=== PATIENT | female | born 2000 | race American Indian/Alaskan Native ===

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

== ENCOUNTER 2020-08-24 22:17 | Emergency (ER) | payer MEDICAID, OTHER ==
[2020-08-24] MEDS ORDERED: ONDANSETRON 4 MG/2 ML INJ IV ONE (22:36)
[2020-08-24] MEDS ORDERED: FAMOTIDINE 20 MG/2 ML INJ IV ONE (22:36)
[2020-08-24] MEDS ORDERED: MORPHINE 4 MG/1 ML INJ IV ONE (22:36)
[2020-08-24] MEDS ORDERED: SODIUM CHLORIDE 0.9% 1000 ML 1,000 ML IV ONE (22:36)
--- NOTE | 2020-08-24 22:39 | Event Note ---
ED Screening Note Date of service: 08/24/20 Time: 22:38 ED Screening Note: Patient is a nulliparous [age]-year-old -Wallisian female with no past medical history presents to the ED with complaint of acute onset persistent intractable nausea and vomiting with periumbilical abdominal pain for the last 1 week. Patient states that she has not been able to keep anything down because of intractable nausea and vomiting and abdominal pain. Patient states that no one else at home has had similar symptoms. Patient denies diarrhea, constipation, chest pain, shortness of breath, fever, chills, dizziness, syncope, headache, back pain, dysuria, urinary frequency and urgency, vaginal bleeding, vaginal discharge, cough, nasal and sinus congestion, headache or change in vision. This initial assessment/diagnostic orders/clinical plan/treatment(s) is/are subject to change based on patients health status, clinical progression and re- assessment by fellow clinical providers in the ED. Further treatment and workup at subsequent clinical providers discretion. Patient/guardian urged not to elope from the ED as their condition may be serious if not clinically assessed and managed. Initial orders include: CBC, CMP, lipase, UA, hCG serum, abdomen pelvis CT scan with contrast
[2020-08-24 22:53] LABS: Basophils % (Auto) 0.3 % (0.0-1.8); Hematocrit 37.4 % (30.3-42.9); Hemoglobin 12.6 gm/dl (10.1-14.3); Lymphocytes # (Auto) 0.8 K/mm3 (1.2-5.4); Lymphocytes % (Auto) 10.3 % (13.4-35.0); Mean Corpuscular HGB Conc 34 % (30-34); Mean Corpuscular Volume 88 fl (79-97); Monocytes # (Auto) 0.5 K/mm3 (0.0-0.8); Monocytes % (Auto) 7.3 % (0.0-7.3); Platelet Count 227 K/mm3 (140-440); Red Blood Count 4.27 M/mm3 (3.65-5.03); Red Cell Distribution Width 13.1 % (13.2-15.2)
[2020-08-24 23:15] LABS: Alanine Aminotransferase 18 units/L (7-56); Albumin 4.4 g/dL (3.9-5); Blood Urea Nitrogen 13 mg/dL (7-17); Calcium 9.5 mg/dL (8.4-10.2); Hemolysis Index 1
--- NOTE | 2020-08-24 23:49 | Emergency Department Report ---
ED Abdominal Pain HPI - General Chief Complaint: Abdominal Pain Stated Complaint: VOMITING;DIARRHEA; NO APPETITE Time Seen by Provider: 08/24/20 23:34 Source: patient Mode of arrival: Ambulatory Limitations: No Limitations - History of Present Illness Initial Comments: Chief complaint: Stomach pain vomiting Patient is a nulliparous [age]-year-old -[place] African female with no past medical history presents to the ED with complaint of acute onset persistent intractable nausea and vomiting with central periumbilical abdominal pain for the last 1 week. Patient states that she has not been able to keep anything down because of intractable nausea and vomiting and abdominal pain. Patient states that no one else at home has had similar symptoms. Patient denies diarrhea, constipation, chest pain, shortness of breath, fever, chills, dizziness, syncope, headache, back pain, dysuria, urinary frequency and urgency, vaginal bleeding, vaginal discharge, cough, nasal and sinus congestion, headache or change in vision Last menstrual period May. Patient does not use oral contraceptives. Patient has had unprotected intercourse. She denies vaginal discharge or vaginal bleeding. MD Complaint: abdominal pain -: Gradual, week(s) (1 week) Location: periumbilical Radiation: none Severity: moderate Severity scale (0 -10): 7 Quality: dull Consistency: intermittent, now resolved Improves With: nothing Worsens With: nothing Associated Symptoms: nausea, vomiting. denies: diarrhea - Related Data Previous Rx's Medication Instructions Recorded Last Taken Type Ibuprofen [Motrin 800 MG tab] 800 mg PO Q8HR PRN #20 tablet 05/09/19 Unknown Rx Ondansetron [Zofran Odt] 4 mg PO Q8HR PRN #20 tab.rapdis 08/25/20 Unknown Rx Allergies Allergy/AdvReac Type Severity Reaction Status Date / Time Penicillins Allergy Hives Verified 08/24/20 23:10 ED Review of Systems ROS: Stated complaint: VOMITING;DIARRHEA; NO APPETITE Other details as noted in HPI Comment: All other systems reviewed and negative Constitutional: denies: fever, malaise Respiratory: denies: cough, shortness of breath ED Past Medical Hx - Past Medical History Previous Medical History?: No - Surgical History Past Surgical History?: No - Social History Smoking Status: Never Smoker Substance Use Type: Marijuana - Medications Home Medications: Home Medications Medication Instructions Recorded Confirmed Last Taken Type Ibuprofen [Motrin 800 MG tab] 800 mg PO Q8HR PRN #20 tablet 05/09/19 Unknown Rx Ondansetron [Zofran Odt] 4 mg PO Q8HR PRN #20 tab.rapdis 08/25/20 Unknown Rx ED Physical Exam - General Limitations: No Limitations General appearance: alert, in no apparent distress - Head Head exam: Present: atraumatic, normocephalic - Eye Eye exam: Present: normal appearance - ENT ENT exam: Present: mucous membranes moist - Neck Neck exam: Present: normal inspection, full ROM - Respiratory Respiratory exam: Present: normal lung sounds bilaterally. Absent: respiratory distress, wheezes, rales, rhonchi - Cardiovascular Cardiovascular Exam: Present: regular rate, normal rhythm, normal heart sounds. Absent: systolic murmur, diastolic murmur, rubs, gallop - GI/Abdominal GI/Abdominal exam: Present: soft, normal bowel sounds. Absent: distended, tenderness, guarding, rebound - Extremities Exam Extremities exam: Present: normal inspection - Back Exam Back exam: Present: normal inspection - Neurological Exam Neurological exam: Present: alert, oriented X3 - Psychiatric Psychiatric exam: Present: normal affect, normal mood - Skin Skin exam: Present: warm, dry, intact, normal color. Absent: rash ED Course Vital Signs 08/24/20 22:32 Temperature 98.7 F Pulse Rate 57 L Respiratory 17 Rate Blood Pressure 133/84 O2 Sat by Pulse 100 Oximetry ED Medical Decision Making - Lab Data Result diagrams: 08/24/20 22:41 08/24/20 22:41 Laboratory Results - last 24 hr 08/24/20 08/24/20 08/24/20 22:41 22:41 22:41 WBC 7.5 RBC 4.27 Hgb 12.6 Hct 37.4 MCV 88 MCH 29 MCHC 34 RDW 13.1 L Plt Count 227 Lymph % (Auto) 10.3 L [place] % (Auto) 7.3 Eos % (Auto) 0.0 Baso % (Auto) 0.3 Lymph # (Auto) 0.8 L [place] # (Auto) 0.5 Eos # (Auto) 0.0 Baso # (Auto) 0.0 Seg Neutrophils % 82.1 H Seg Neutrophils # 6.2 Albumin/Globulin Ratio 1.4 HCG, Qual Positive - Radiology Data Radiology results: report reviewed ULTRASOUND OBSTETRIC INDICATION / CLINICAL INFORMATION: abdominal pain . TECHNIQUE: Transabdominal and Transvaginal. COMPARISON: None available. FINDINGS: GESTATIONAL SAC: Well-defined oval shape and intrauterine in location. YOLK SAC: No significant abnormality. EMBRYO/FETUS: No significant abnormality. - [place]-Rump Length = 0.59 cm = 6.3 weeks.days - Heart Rate, beats per minute (if present) = 114 ADNEXA: No significant abnormality. FREE FLUID: None. ADDITIONAL FINDINGS: None. IMPRESSION: 1. Single, living intrauterine with estimated sonographic age of 6.3 weeks.days. - Medical Decision Making Abdominal pain : No tenderness fever or leukocytosis to suggest appendicitis or cholecystitis. No indication of obstruction clinically. No significant pain or discharge to indicate PID. Ectopic ruled out with ultrasound. I suspect abdominal pain due to unknown and hyperemesis gravidarum. Patient given IV fluid therapy famotidine Zofran in emergency department. Work-up revealed mild hypokalemia and hypochloremia indicative of dehydration. Patient received IV fluid therapy in emergency department. Beta hCG greater than 23,000. Critical care attestation.: If time is entered above; I have spent that time in minutes in the direct care of this critically ill patient, excluding procedure time. ED Disposition Clinical Impression: Abdominal pain affecting , First trimester , Dehydration, Hyperemesis gravidarum Disposition: - TO HOME OR SELFCARE Is pt being admited?: No Does the pt Need Aspirin: No Condition: Stable Instructions: Abdominal Pain (ED), Abdominal Pain During , E asy-to-Read, Morning Sickness Prescriptions: Ondansetron [Zofran Odt] 4 mg PO Q8HR PRN #20 tab.rapdis PRN Reason: nausea/vomiting Referrals: CHRISTINE TUCKER MD [Staff Physician] - 3-5 Days
[2020-08-24 23:53] LABS: BUN/Creatinine Ratio 19
--- NOTE | 2020-08-25 01:22 | Ultrasound Report ---
ULTRASOUND OBSTETRIC INDICATION / CLINICAL INFORMATION: abdominal pain . TECHNIQUE: Transabdominal and Transvaginal. COMPARISON: None available. FINDINGS: GESTATIONAL SAC: Well-defined oval shape and intrauterine in location. YOLK SAC: No significant abnormality. EMBRYO/FETUS: No significant abnormality. - [place]-Rump Length = 0.59 cm = 6.3 weeks.days - Heart Rate, beats per minute (if present) = 114 ADNEXA: No significant abnormality. FREE FLUID: None. ADDITIONAL FINDINGS: None. IMPRESSION: 1. Single, living intrauterine with estimated sonographic age of 6.3 weeks.days. Signer Name: Mookie Ng MD Signed: 08/25/2020 1:18 AM Workstation Name: [id number]
--- NOTE | 2020-08-25 01:22 | Ultrasound Report ---
ULTRASOUND OBSTETRIC INDICATION / CLINICAL INFORMATION: abdominal pain . TECHNIQUE: Transabdominal and Transvaginal. COMPARISON: None available. FINDINGS: GESTATIONAL SAC: Well-defined oval shape and intrauterine in location. YOLK SAC: No significant abnormality. EMBRYO/FETUS: No significant abnormality. - [place]-Rump Length = 0.59 cm = 6.3 weeks.days - Heart Rate, beats per minute (if present) = 114 ADNEXA: No significant abnormality. FREE FLUID: None. ADDITIONAL FINDINGS: None. IMPRESSION: 1. Single, living intrauterine with estimated sonographic age of 6.3 weeks.days. Signer Name: Mookie Ng MD Signed: 08/25/2020 1:18 AM Workstation Name: [id number]
[2020-08-25 02:07] VITALS: BP 128/64
== END 2020-08-25 02:14 | disposition home or self-care (01) ==
LOC: ED 22:17
DX: O21.0 Mild hyperemesis gravidarum (principal); O26.891 Other specified pregnancy related conditions, first trimester; E86.0 Dehydration; R10.33 Periumbilical pain; F12.10 Cannabis abuse, uncomplicated; Z3A.01 Less than 8 weeks gestation of pregnancy; Z79.1 Long term (current) use of non-steroidal anti-inflammatories (NSAID); Z79.899 Other long term (current) drug therapy; Z88.0 Allergy status to penicillin
CPT/HCPCS: 36415; 76801; 76817; 80053; 83690; 84702; 84703; 85025; 96361; 96374; 96375; 99284; J2405; J7030; 76802

== ENCOUNTER 2020-09-23 08:04 | Emergency (ER) | payer SELFPAY ==
[2020-09-23 08:18] VITALS: BP 134/85
[2020-09-23] MEDS ORDERED: ACETAMINOPHEN 325 MG TAB PO ONE (09:01)
--- NOTE | 2020-09-23 09:03 | Emergency Department Report ---
ED Abdominal Pain HPI - General Chief Complaint: Abdominal Pain Stated Complaint: PELVIC PAIN Time Seen by Provider: 09/23/20 08:55 Source: patient Mode of arrival: Ambulatory Limitations: No Limitations - History of Present Illness Initial Comments: 19-year-old female presents to the emergency room with complaint of right pelvic pain painful urination, nausea and decreased urination x1 week. Patient states she is 9 weeks . She has not been seen by CAT DOG OR OTHER PET GROOMER. she denies vaginal bleeding she denies abdominal cramping she denies fever, no fever no cough no chest pain no shortness of breath. She has no past medical history and this is her first . Patient appears to be in no acute distress. -: week(s) (1) Location: suprapubic Radiation: none Migration to: no migration Severity scale (0 -10): 8 Quality: aching Consistency: constant Improves With: nothing Worsens With: nothing Associated Symptoms: nausea, dysuria. denies: vomiting, diarrhea, fever, constipation, melena, hematuria, anorexia, syncope - Related Data Previous Rx's Medication Instructions Recorded Last Taken Type Ibuprofen [Motrin 800 MG tab] 800 mg PO Q8HR PRN #20 tablet 05/09/19 Unknown Rx Ondansetron [Zofran Odt] 4 mg PO Q8HR PRN #20 tab.rapdis 08/25/20 Unknown Rx Allergies Allergy/AdvReac Type Severity Reaction Status Date / Time Penicillins Allergy Hives Verified 08/24/20 23:10 ED Review of Systems ROS: Stated complaint: PELVIC PAIN Other details as noted in HPI Comment: All other systems reviewed and negative Constitutional: no symptoms reported. denies: chills, fever, malaise ENT: denies: ear pain, throat pain, dental pain Respiratory: no symptoms reported Cardiovascular: denies: chest pain, palpitations, dyspnea on exertion Endocrine: no symptoms reported Gastrointestinal: nausea Genitourinary: dysuria Musculoskeletal: denies: back pain Skin: denies: rash, lesions Neurological: denies: headache Psychiatric: as per HPI Hematological/Lymphatic: as per HPI ED Past Medical Hx - Past Medical History Previous Medical History?: No - Surgical History Past Surgical History?: No - Social History Smoking Status: Current Every Day Smoker Substance Use Type: Marijuana - Medications Home Medications: Home Medications Medication Instructions Recorded Confirmed Last Taken Type Ibuprofen [Motrin 800 MG tab] 800 mg PO Q8HR PRN #20 tablet 05/09/19 Unknown Rx Ondansetron [Zofran Odt] 4 mg PO Q8HR PRN #20 tab.rapdis 08/25/20 Unknown Rx ED Physical Exam - General Limitations: No Limitations General appearance: alert, in no apparent distress - Head Head exam: Present: atraumatic - Eye Eye exam: Present: normal appearance - ENT ENT exam: Present: normal exam - Neck Neck exam: Present: normal inspection - Respiratory Respiratory exam: Present: normal lung sounds bilaterally - Cardiovascular Cardiovascular Exam: Present: regular rate, normal heart sounds - GI/Abdominal GI/Abdominal exam: Present: soft, normal bowel sounds. Absent: distended, tend erness - Extremities Exam Extremities exam: Present: normal inspection - Back Exam Back exam: Present: normal inspection - Neurological Exam Neurological exam: Present: alert, oriented X3 - Psychiatric Psychiatric exam: Present: normal affect - Skin Skin exam: Present: warm, dry, intact, normal color ED Course Vital Signs 09/23/20 08:09 Temperature 98.2 F Pulse Rate 80 Respiratory 18 Rate Blood Pressure 134/85 O2 Sat by Pulse 100 Oximetry - Reevaluation(s) Reevaluation #1: 09/23/20 11:25 Patient in no distress resting comfortably still waiting for urine analysis ED Medical Decision Making - Lab Data Result diagrams: 09/23/20 09:33 09/23/20 09:33 - Radiology Data Radiology results: report reviewed ULTRASOUND OBSTETRIC INDICATION / CLINICAL INFORMATION: abdominal pain. Clinical Gestational Age (GA): 10.5 weeks.days TECHNIQUE: Transabdominal. COMPARISON: 08/24/2020. FINDINGS: GESTATIONAL SAC: Well-defined oval shape and intrauterine in location. There is a tiny crescentic hypoechoic region adjacent to the gestational sac. YOLK SAC: No significant abnormality. EMBRYO/FETUS: No significant abnormality. - [place]-Rump Length = 33.0 cm = 10.1 weeks.days - Heart Rate, beats per minute (if present) = 173 UTERUS: The uterus measures 10.1 x 7.6 x 8.7 cm and is normal in echogenicity. ADNEXA: The right ovary measures 3.8 cm and contains a 2.6 cm anechoic cyst. The left ovary measures 2.6 cm and is normal in echogenicity. There is normal Doppler flow to both ovaries. FREE FLUID: None. ADDITIONAL FINDINGS: None. IMPRESSION: 1. Single, living intrauterine with estimated sonographic age of 10.0 weeks.days. 2. Tiny subchorionic hematoma. 3. 2.6 cm simple right ovarian cyst. - Medical Decision Making 19-year-old female that is approximately 10 weeks presents with pain to the right pelvic region upon evaluation she had normal blood work urinalysis shows no signs of infection. Pelvic ultrasound reveals live single intrauterine heart tones 173, right simple ovarian cyst. Findings discussed with patient the plan is for her to follow-up with CAT DOG OR OTHER PET GROOMER as soon as possible she can take Tylenol for pain as needed. Patient in no acute distress stable for discharge Critical care attestation.: If time is entered above; I have spent that time in minutes in the direct care of this critically ill patient, excluding procedure time. ED Disposition Clinical Impression: Intrauterine , Right ovarian cyst Disposition: TO HOME OR SELFCARE Is pt being admited?: No Does the pt Need Aspirin: No Condition: Stable Instructions: Abdominal Pain (ED), First Trimester of , [id number], How a Baby Grows During , Ovarian Cyst Additional Instructions: At home rest drink plenty fluids take at least 6 to 8 to 10 glasses of water per day. Okay for you to take Tylenol 1 to 2 tablets every 4-6 hours as needed for pain. Please follow-up with CAT DOG OR OTHER PET GROOMER as soon as possible.. Your ultrasound today reveals 10 weeks you also have a right ovarian cyst please follow-up with CAT DOG OR OTHER PET GROOMER. Return to the emergency room immediately for any abdominal pain or vaginal bleeding Referrals: PRIMARY CARLOS, [Primary Care Provider] - 3-5 Days KYE SYED MD [Staff Physician] - 3-5 Days DARWIN SAHA NP [Advanced Practice Nurse] - 3-5 Days Time of Disposition: 12:49
--- NOTE | 2020-09-23 09:47 | Ultrasound Report ---
ULTRASOUND OBSTETRIC INDICATION / CLINICAL INFORMATION: abdominal pain. Clinical Gestational Age (GA): 10.5 weeks.days TECHNIQUE: Transabdominal. COMPARISON: 08/24/2020. FINDINGS: GESTATIONAL SAC: Well-defined oval shape and intrauterine in location. There is a tiny crescentic hyp oechoic region adjacent to the gestational sac. YOLK SAC: No significant abnormality. EMBRYO/FETUS: No significant abnormality. - [place]-Rump Length = 33.0 cm = 10.1 weeks.days - Heart Rate, beats per minute (if present) = 173 UTERUS: The uterus measures 10.1 x 7.6 x 8.7 cm and is normal in echogenicity. ADNEXA: The right ovary measures 3.8 cm and contains a 2.6 cm anechoic cyst. The left ovary measures 2.6 cm and is normal in echogenicity. There is normal Doppler flow to both ovaries. FREE FLUID: None. ADDITIONAL FINDINGS: None. IMPRESSION: 1. Single, living intrauterine with estimated sonographic age of 10.0 weeks.days. 2. Tiny subchorionic hematoma. 3. 2.6 cm simple right ovarian cyst. Signer Name: Tushar Perry MD Signed: 09/23/2020 9:43 AM Workstation Name: [email or web address]
[2020-09-23 10:18] LABS: Hematocrit 32.6 % (30.3-42.9); Hemoglobin 10.7 gm/dl (10.1-14.3); Mean Corpuscular HGB Conc 33 % (30-34); Mean Corpuscular Volume 89 fl (79-97); Platelet Count 196 K/mm3 (140-440); Red Blood Count 3.65 M/mm3 (3.65-5.03); Red Cell Distribution Width 13.9 % (13.2-15.2)
[2020-09-23 10:29] LABS: Blood Urea Nitrogen 6 mg/dL (7-17); Calcium 8.6 mg/dL (8.4-10.2); Hemolysis Index 19
[2020-09-23 10:33] LABS: BUN/Creatinine Ratio 12
[2020-09-23 12:33] LABS: Bilirubin,Urine NEG (Negative); Blood,Urine NEG (Negative); Color,Urine Yellow (Yellow); Mucus,Urine 2+ /HPF; Protein,Urine <15 mg/dL mg/dL (Negative); Urobilinogen,Urine < 2.0 mg/dL (<2.0)
== END 2020-09-23 12:57 | disposition home or self-care (01) ==
LOC: ED 08:04
DX: O99.331 Smoking (tobacco) complicating pregnancy, first trimester (principal); O26.891 Other specified pregnancy related conditions, first trimester; N83.201 Unspecified ovarian cyst, right side; Z88.0 Allergy status to penicillin; Z79.899 Other long term (current) drug therapy; Z3A.01 Less than 8 weeks gestation of pregnancy
CPT/HCPCS: 36415; 76801; 80048; 81001; 84702; 85027

== ENCOUNTER 2020-10-31 03:41 | Emergency (ER) | payer SELFPAY ==
[2020-10-31] MEDS ORDERED: diphenhydrAMINE 25 MG CAP PO ONE (04:42)
[2020-10-31] MEDS ORDERED: ACETAMINOPHEN 500 MG TAB PO ONE (04:42)
[2020-10-31] MEDS ORDERED: predniSONE 20 MG TAB PO ONE (04:44)
[2020-10-31 06:05] VITALS: BP 136/69
[2020-10-31 06:20] LABS: Bilirubin,Urine NEG (Negative); Blood,Urine NEG (Negative); Color,Urine Yellow (Yellow); Mucus,Urine 3+ /HPF; Protein,Urine <15 mg/dL mg/dL (Negative)
--- NOTE | 2020-10-31 07:38 | Emergency Department Report ---
ED Headache HPI - General Chief Complaint: Headache Stated Complaint: /MIGRAINE/PRESSURE IN NECK/BACK Time Seen by Provider: 10/31/20 07:35 Source: patient - History of Present Illness Initial Comments: Patient is a 19-year-old -Hungarian female that I received at shift change. Labs noted as ordered by overnight staff. Patient endorses bilateral ear pain resulting in a headache. She has a history of migraines. Patient is . Patient has taken nothing prior to arrival in the emergency room. On exam patient is alert and oriented x4 ambulatory, [id number] and nontoxic on exam. Quality: mild Head Injury Location: frontal Recent Head Trauma: no recent headache/trauma Modifying Factors: worse with: cold therapy, exposure to light, immobilization, medication, movement, rest, other Associated Symptoms: denies: denies symptoms, confusion, fatigue, facial pain, fever/chills, flushing, loss of consciousness, nausea/vomiting, nasal congestion, nasal drainage, numbness in legs/feet, rash, seizures, sinus infection, stiff neck, vision changes, weakness, other Allergies/Adverse Reactions: Allergies Penicillins Allergy (Verified 08/24/20 23:10) Hives Home Medications: Ambulatory Orders Azithromycin [Zithromax] 250 mg PO DAILY #6 tablet 10/31/20 ED Review of Systems ROS: Stated complaint: /MIGRAINE/PRESSURE IN NECK/BACK Other details as noted in HPI Comment: All other systems reviewed and negative ED Past Medical Hx - Past Medical History Previous Medical History?: No - Surgical History Past Surgical History?: No - Family History Family history: no significant - Social History Smoking Status: Current Some Day Smoker Substance Use Type: None - Medications Home Medications: Home Medications Medication Instructions Recorded Confirmed Last Taken Type Azithromycin [Zithromax] 250 mg PO DAILY #6 tablet 10/31/20 Unknown Rx ED Physical Exam - General Limitations: No Limitations General appearance: alert, in no apparent distress - Head Head exam: Present: atraumatic, normocephalic - Eye Eye exam: Present: normal appearance - ENT ENT exam: Present: normal orophraynx, mucous membranes moist - Expanded ENT Exam Expanded TM/Canal exam: Erythema: Right TM, Left TM Teeth exam: Present: normal inspection Throat exam: Positive: normal inspection - Neck Neck exam: Present: normal inspection - Respiratory Respiratory exam: Present: normal lung sounds bilaterally. Absent: respiratory distress - Cardiovascular Cardiovascular Exam: Present: regular rate, normal rhythm. Absent: systolic murmur, diastolic murmur, rubs, gallop - GI/Abdominal GI/Abdominal exam: Present: soft, normal bowel sounds - Extremities Exam Extremities exam: Present: normal inspection - Back Exam Back exam: Present: normal inspection - Neurological Exam Neurological exam: Present: alert, oriented X3 - Psychiatric Psychiatric exam: Present: normal affect, normal mood - Skin Skin exam: Present: warm, dry, intact, normal color. Absent: rash ED Course Vital Signs 10/31/20 10/31/20 03:45 06:04 Temperature 100.4 F H 100 F H Pulse Rate 114 H 96 H Respiratory 16 18 Rate Blood Pressure 144/84 Blood Pressure 136/69 [Right] O2 Sat by Pulse 96 100 Oximetry ED Medical Decision Making - Medical Decision Making Vital Signs 10/31/20 10/31/20 03:45 06:04 Temperature 100.4 F H 100 F H Pulse Rate 114 H 96 H Respiratory 16 18 Rate Blood Pressure 144/84 Blood Pressure 136/69 [Right] O2 Sat by Pulse 96 100 Oximetry Lab Results 10/31/20 Range/Units 06:06 Urine Color Yellow (Yellow) Urine Turbidity Clear (Clear) Urine pH 5.0 (5.0-7.0) Ur Specific [place] 1.026 (1.003-1.030) Urine Protein <15 mg/dl (Negative) mg/dL Urine Glucose (UA) Neg (Negative) mg/dL Urine Ketones 20 (Negative) mg/dL Urine Blood Neg (Negative) Urine Nitrite Neg (Negative) Urine Bilirubin Neg (Negative) Urine Urobilinogen 4.0 (<2.0) mg/dL Ur Leukocyte Esterase Neg (Negative) Urine WBC (Auto) 2.0 (0.0-6.0) /HPF Urine RBC (Auto) 2.0 (0.0-6.0) /HPF U Epithel Cells (Auto) 6.0 (0-13.0) /HPF Urine Mucus 3+ /HPF 15 w preg G1 bilateral ear pain with headache seen overnight no complaints on 0700 exam ambulatory non ill non toxic taking po TM red bilateral with wax bilaterally. No pain with pulling on the tragus. Patient states that her ears have felt like they needed to pop. Patient reports no pain on reexamination. She is being discharged home with discharge plan of care including amoxicillin for her OM. She understands that she needs to follow-up with her primary care and/or [facility]NA[facility]ST this week. On discha rge patient is ambulatory, [id number] and in no acute distress. She denies any pain on discharge. On dc HR 90; temp 98 per provider exam. - Differential Diagnosis headache/OM/preg related/ UTI Critical care attestation.: If time is entered above; I have spent that time in minutes in the direct care of this critically ill patient, excluding procedure time. ED Disposition Clinical Impression: Headache, Otitis media of both ears, Excessive cerumen in both ear canals Disposition: DC-01 TO HOME OR SELFCARE Is pt being admited?: No Does the pt Need Aspirin: No Condition: Stable Instructions: Otitis Media, Adult Additional Instructions: tylenol for pain follow up with obgyn in 24 hours for recheck OVER THE COUNTER CERUMENEX TO EARS PER PACKAGE INSTRUCTIONS MED ORDERED TODAY UNTIL GONE Prescriptions: Azithromycin [Zithromax] 250 mg PO DAILY #6 tablet Referrals: СЕРГЕЙ KING MD [Staff Physician] - 3-5 Days Time of Disposition: 07:37
== END 2020-10-31 09:09 | disposition home or self-care (01) ==
LOC: ED 03:41
DX: R51.9 Headache, unspecified (principal); H66.93 Otitis media, unspecified, bilateral; H61.23 Impacted cerumen, bilateral; F17.200 Nicotine dependence, unspecified, uncomplicated; Z79.899 Other long term (current) drug therapy; Z88.0 Allergy status to penicillin
CPT/HCPCS: 81001; 99283; J7512

== ENCOUNTER 2020-11-25 23:24 | Emergency (ER) | payer MEDICAID ==
[2020-11-26 02:05] LABS: Hematocrit 31.1 % (30.3-42.9); Hemoglobin 10.5 gm/dl (10.1-14.3); Mean Corpuscular HGB Conc 34 % (30-34); Mean Corpuscular Volume 91 fl (79-97); Platelet Count 185 K/mm3 (140-440); Red Blood Count 3.41 M/mm3 (3.65-5.03); Red Cell Distribution Width 14.3 % (13.2-15.2)
[2020-11-26 02:14] LABS: Bacteria,Urine 1+ /HPF (Negative); Bilirubin,Urine NEG (Negative); Blood,Urine NEG (Negative); Color,Urine Yellow (Yellow); Mucus,Urine FEW /HPF; Protein,Urine <15 mg/dL mg/dL (Negative)
--- NOTE | 2020-11-26 02:22 | Ultrasound Report ---
ULTRASOUND OBSTETRIC INDICATION / CLINICAL INFORMATION: RLQ pain 19 weeks . Clinical Gestational Age (GA): TECHNIQUE: Transabdominal. COMPARISON: 09/23/2020 FINDINGS: There is a single intrauterine . Biparietal Diameter = 4.4 cm = 19 weeks, 2 day(s). Head Circumference = 16.5 cm = 19 weeks, 2 day(s). Abdominal Circumference = 14.2 cm = 19 weeks, 4 day(s). Femur Length = 3.3 cm = 20 weeks, 2 day(s). Average Ultrasound Age (AUA) = 19 weeks, 4 day(s). Heart Rate: 151 beats per minute. Estimated Weight in grams (if calculated): 3 12 g Estimated Weight Growth Percentile (if calculated): Position: breech. Cervix: closed. Length in cm (if measured): 3.7 cm Placenta: Fundally and posterior and free of the os. Amniotic Fluid Volume: normal Amniotic Fluid Index (GIOVANA) in cm (if calculated): . Maternal Adnexa: No significant abnormality. IMPRESSION: 1. Single, living intrauterine with estimated sonographic age of 19 weeks, 4 day(s with no rmal interval growth as compared to previous exam). 2. No significant sonographic abnormality. Signer Name: Scout Reis MD Signed: 11/26/2020 2:17 AM Workstation Name: [id number]
[2020-11-26 02:28] LABS: Alanine Aminotransferase 15 units/L (7-56); Albumin 3.7 g/dL (3.9-5); Blood Urea Nitrogen 10 mg/dL (7-17); Calcium 8.9 mg/dL (8.4-10.2); Hemolysis Index 0
[2020-11-26 02:29] LABS: BUN/Creatinine Ratio 17
[2020-11-26] MEDS ORDERED: ACETAMINOPHEN 500 MG TAB PO ONE (03:42)
--- NOTE | 2020-11-26 04:03 | Emergency Department Report ---
ED Female HPI - General Chief complaint: Abdominal Pain Stated complaint: VAGINAL PAIN/OVARIAN CYST Source: patient Mode of arrival: Ambulatory Limitations: No Limitations - History of Present Illness Initial comments: Patient is a A0 20-year-old -Andor[place] female who is approximately 19 weeks gestation and who has no past medical history presents to the ED with co mplaint of acute onset persistent suprapubic pain after having sexual intercourse 2 days ago. Patient states that the pain has been persistent especially worse with movement. Patient states that the pain is sharp, constant, pressure-like in the suprapubic area. Patient denies vaginal bleeding, vaginal discharge, dysuria, urinary frequency and urgency, low back pain, nausea, vomiting, diarrhea, dizziness, syncope, fever, chills, chest pain or shortness of breath. MD Complaint: pelvic pain (after sexual intercourse), other (19 weeks gestation) -: Sudden, days(s) (2) Location: suprapubic Radiation: non-radiating Severity scale (0 -10): 6 Quality: sharp, aching Consistency: constant Improves with: none Worsens with: intercourse, movement Are you Now?: Yes (19 weeks gestation) Associated Symptoms: denies other symptoms, abdominal pain (Suprapubic pain). denies: vaginal discharge, vaginal bleeding, nausea/vomiting, fever/chills, headaches, loss of appetite, hematuria, rash, seizure, shortness of breath, syncope, weakness - Related Data Sexually active: Yes : 1 Para: 0 A: 0 Previous Rx's Medication Instructions Recorded Last Taken Type Azithromycin [Zithromax] 250 mg PO DAILY #6 tablet 10/31/20 Unknown Rx Acetaminophen [Tylenol] 500 mg PO Q6HR PRN #30 tablet 11/26/20 Unknown Rx Allergies Allergy/AdvReac Type Severity Reaction Status Date / Time Penicillins Allergy Hives Verified 08/24/20 23:10 ED Review of Systems ROS: Stated complaint: VAGINAL PAIN/OVARIAN CYST Other details as noted in HPI Constitutional: denies: chills, fever Eyes: denies: eye pain, eye discharge, vision change ENT: denies: ear pain, throat pain Respiratory: denies: cough, shortness of breath, wheezing Cardiovascular: denies: chest pain, palpitations Endocrine: no symptoms reported Gastrointestinal: abdominal pain (Suprapubic pain). denies: nausea, vomiting, diarrhea Genitourinary: denies: urgency, dysuria, discharge Musculoskeletal: denies: back pain, joint swelling, arthralgia Skin: denies: rash, lesions Neurological: denies: headache, weakness, paresthesias Psychiatric: denies: anxiety, depression Hematological/Lymphatic: denies: easy bleeding, easy bruising ED Past Medical Hx - Past Medical History Previous Medical History?: Yes Additional medical history: ovarian cyst - Social History Smoking Status: Current Some Day Smoker Substance Use Type: None - Medications Home Medications: Home Medications Medication Instructions Recorded Confirmed Last Taken Type Azithromycin [Zithromax] 250 mg PO DAILY #6 tablet 10/31/20 Unknown Rx Acetaminophen [Tylenol] 500 mg PO Q6HR PRN #30 tablet 11/26/20 Unknown Rx ED Physical Exam - General Limitations: No Limitations General appearance: alert, in no apparent distress - Head Head exam: Present: atraumatic, normocephalic, normal inspection - Eye Eye exam: Present: normal appearance, PERRL, EOMI Pupils: Present: normal accommodation - ENT ENT exam: Present: normal exam, normal orophraynx, mucous membranes moist, TM's normal bilaterally, normal external ear exam - Neck Neck exam: Present: normal inspection, full ROM - Respiratory Respiratory exam: Present: normal lung sounds bilaterally. Absent: respiratory distress, wheezes, rales, chest wall tenderness, accessory muscle use, decreased breath sounds - Cardiovascular Cardiovascular Exam: Present: regular rate, normal rhythm, normal heart sounds. Absent: systolic murmur, diastolic murmur, rubs, gallop - GI/Abdominal GI/Abdominal exam: Present: soft, tenderness (Palpable mild suprapubic tenderness), normal bowel sounds. Absent: guarding, rebound, hyperactive bowel sounds, hypoactive bowel sounds - Bi-manual exam: Present: other (Pelvic exam deferred at this time) - Extremities Exam Extremities exam: Present: normal inspection, full ROM, normal capillary refill - Back Exam Back exam: Present: normal inspection, full ROM. Absent: tenderness, CVA tenderness (R), CVA tenderness (L), muscle spasm, paraspinal tenderness, vertebral tenderness - Neurological Exam Neurological exam: Present: alert, oriented X3, CN II-XII intact, normal gait, reflexes normal - Psychiatric Psychiatric exam: Present: normal affect, normal mood - Skin Skin exam: Present: warm, dry, intact, normal color. Absent: rash ED Course Vital Signs 11/25/20 23:53 Temperature 99.0 F Pulse Rate 84 Respiratory 18 Rate Blood Pressure 141/82 O2 Sat by Pulse 100 Oximetry ED Medical Decision Making - Lab Data Result diagrams: 11/26/20 01:18 11/26/20 01:18 - Radiology Data Radiology results: report reviewed, image reviewed [facility] [address] [place] [address] Ultrasound Report Signed Patient: PREET UBRNS MR#: [id number] 8 : 2000 Acct:[id number] Age/Sex: 20 / F ADM Date: 11/25/20 Loc: ED Attending Dr: Ordering Physician: CHRISTOPHER NAGY Date of Service: 11/26/20 Procedure(s): US OB >= 14 weeks Fetus Accession Number(s): [id number] cc: CHRISTOPHER NAGY ULTRASOUND OBSTETRIC INDICATION / CLINICAL INFORMATION: RLQ pain 19 weeks . Clinical Gestational Age (GA): TECHNIQUE: Transabdominal. COMPARISON: 09/23/2020 FINDINGS: There is a single intrauterine . Biparietal Diameter = 4.4 cm = 19 weeks, 2 day(s). Head Circumference = 16.5 cm = 19 weeks, 2 day(s). Abdominal Circumference = 14.2 cm = 19 weeks, 4 day(s). Femur Length = 3.3 cm = 20 weeks, 2 day(s). Average Ultrasound Age (AUA) = 19 weeks, 4 day(s). Heart Rate: 151 beats per minute. Estimated Weight in grams (if calculated): 3 12 g Estimated Weight Growth Percentile (if calculated): Position: breech. Cervix: closed. Length in cm (if measured): 3.7 cm Placenta: Fundally and posterior and free of the os. Amniotic Fluid Volume: normal Amniotic Fluid Index (GIOVANA) in cm (if calculated): . Maternal Adnexa: No significant abnormality. IMPRESSION: 1. Single, living intrauterine with estimated sonographic age of 19 weeks, 4 day(s with normal interval growth as compared to previous exam). 2. No significant sonographic abnormality. Signer Name: Scout Reis MD Signed: 11/26/2020 2:17 AM Workstation Name: [id number] Transcribed By: WG Dictated By: Scout Reis MD Electronically Authenticated By: Scout Reis MD Signed Date/Time: 11/26/20216 DD/ 4 TD/TT: Print Cancel - Medical Decision Making This is a A0 20-year-old -Andorran female who is approximately 19 weeks gestation and who has no past medical history presents to the ED with complaint of acute onset persistent suprapubic pain after having sexual intercourse 2 days ago. Patient states that the pain has been persistent especially worse with movement. Patient states that the pain is sharp, constant, pressure-like in the suprapubic area. In the ED, patient is alert and oriented x3 and is not in any distress. Patient was treated for pain with Tylenol 1 g p.o. x1. Lab test results were reviewed and are all nonactionable including urinalysis. Pelvic ultrasound showed a single, living intrauterine with estimated sonographic age of 19 weeks, 4 day(s with normal interval growth as compared to previous exam) with a heart rate of 151 bpm, and no other significant sonographic abnormality. The patient symptoms started after sexual intercourse 2 days ago and has been persistent since then. Based on the history and physical exam findings, and unremarkable lab test results and imaging report, patient was discharged home and advised to take Tylenol as needed for pain, and to maintain a complete pelvic rest and follow-up with a [facility]IED[facility] OPERATOR physician in 3 to 5 days for reevaluation. Patient was also advised to return to the emergency department immediately if her symptoms get worse especially if she develops vaginal bleeding, intractable nausea and vomiting, fever, chills, or worsening pelvic pain. - Differential Diagnosis UTI; Ovarian cyst; premature labor; Critical care attestation.: If time is entered above; I have spent that time in minutes in the direct care of this critically ill patient, excluding procedure time. ED Disposition Clinical Impression: Abdominal pain during in second trimester Disposition: DC-01 TO HOME OR SELFCARE Is pt being admited?: No Does the pt Need Aspirin: No Condition: Stable Instructions: Abdominal Pain (ED), Abdominal Pain During , [id number] Additional Instructions: All lab test results were reviewed and are all nonactionable including urinalysis. Transvaginal ultrasound showed is a single, living intrauterine with estimated sonographic age of 19 weeks, 4 day(s with normal interval growth as compared to previous exam) with a heart rate of 151 bpm and no other significant sonographic abnormality. Therefore take Tylenol as needed for pain, maintain a complete pelvic rest with no physical or strenuous or sexual activity and follow-up with your TIED[facility] OPER[facility] physician in 3 to 5 days for reevaluation. Return to the ED immediately if symptoms get worse especially if you develop severe pain, vaginal bleeding, fever, chills and intractable nausea and vomiting. Prescriptions: Acetaminophen [Tylenol] 500 mg PO Q6HR PRN #30 tablet PRN Reason: Pain , Severe (7-10) Referrals: CHRISTINE TUCKER MD [Staff Physician] - 3-5 Days Time of Disposition: 04:02 Print Language: IRISH
[2020-11-26 04:25] VITALS: BP 129/90
== END 2020-11-26 04:30 | disposition home or self-care (01) ==
LOC: ED 23:24
DX: O26.892 Other specified pregnancy related conditions, second trimester (principal); R10.30 Lower abdominal pain, unspecified; F17.200 Nicotine dependence, unspecified, uncomplicated; Z3A.19 19 weeks gestation of pregnancy; Z88.0 Allergy status to penicillin; Z79.899 Other long term (current) drug therapy
CPT/HCPCS: 36415; 76805; 80053; 81001; 85027; 99284

== ENCOUNTER 2020-12-05 14:04 | Outpatient (CLI) | payer MEDICAID ==
[2020-12-05 14:50] VITALS: BP 105/57
[2020-12-05 14:50] LABS: Bilirubin,Urine NEG (Negative); Blood,Urine NEG (Negative); Color,Urine Yellow (Yellow); Mucus,Urine 3+ /HPF; Urobilinogen,Urine < 2.0 mg/dL (<2.0)
== END 2020-12-05 15:28 | disposition still patient (30) ==
LOC: TRG 14:04 → APU 14:05 → TRG 15:28
PROVIDERS: ATTEND Obstetrics & Gynecology
DX: O26.892 Other specified pregnancy related conditions, second trimester (principal); R10.9 Unspecified abdominal pain; M54.5 Low back pain; R42 Dizziness and giddiness; Z3A.21 21 weeks gestation of pregnancy
CPT/HCPCS: 81001; 87076; 87086; 87186

== ENCOUNTER 2020-12-05 17:18 | Emergency (ER) | payer MEDICAID | END 2020-12-05 19:30 | disposition left against medical advice (07) | LOC: ED 17:18 | DX: N93.9 Abnormal uterine and vaginal bleeding, unspecified (principal); R06.00 Dyspnea, unspecified; Z53.21 Procedure and treatment not carried out due to patient leaving prior to being seen by health care provider ==

== ENCOUNTER 2020-12-06 13:43 | Observation (INO) | payer MEDICAID ==
[2020-12-06] MEDS ORDERED: SODIUM CHLORIDE 0.9% 1000 ML IV SOLN IV ONE (14:46)
[2020-12-06] MEDS ORDERED: ACETAMINOPHEN 325 MG TAB PO ONE (14:47)
--- NOTE | 2020-12-06 14:48 | Event Note ---
ED Screening Note ED Screening Note: Patient is currently 20 weeks She presents for lightheadedness and dizziness She states it is worse when she bends down she has associated headache She states that she also has shortness of breath and pain with taking a deep breath She denies any abdominal pain, vomiting, diarrhea,abdominal pain, vaginal bleeding, urinary symptoms This initial assessment/diagnostic orders/clinical plan/treatment(s) is/are subject to change based on patients health status, clinical progression and re-assessment by fellow clinical providers in the ED. Further treatment and workup at subsequent clinical providers discretion. Patient/guardian urged not to elope from the ED as their condition may be serious if not clinically assessed and managed. Initial orders include: sepsis protocol initiated
[2020-12-06 15:00] LABS: Hematocrit 30.5 % (30.3-42.9); Hemoglobin 10.4 gm/dl (10.1-14.3); Mean Corpuscular HGB Conc 34 % (30-34); Mean Corpuscular Volume 89 fl (79-97); Platelet Count 191 K/mm3 (140-440); Red Blood Count 3.43 M/mm3 (3.65-5.03); Red Cell Distribution Width 13.3 % (13.2-15.2)
[2020-12-06 15:18] LABS: Alanine Aminotransferase 14 units/L (7-56); Albumin 3.2 g/dL (3.9-5); Blood Urea Nitrogen 4 mg/dL (7-17); Calcium 8.5 mg/dL (8.4-10.2); Hemolysis Index 1
[2020-12-06 15:22] LABS: BUN/Creatinine Ratio 7
[2020-12-06 15:29] LABS: Bacteria,Urine 2+ /HPF (Negative); Bilirubin,Urine NEG (Negative); Blood,Urine NEG (Negative); Color,Urine Amber (Yellow); Mucus,Urine 2+ /HPF
--- NOTE | 2020-12-06 16:15 | XRay Report ---
CHEST 1 VIEW 12/06/2020 3:43 PM INDICATION / CLINICAL INFORMATION: SOB, suspected sepsis. COMPARISON: 05/09/2019 FINDINGS: SUPPORT DEVICES: None. HEART / MEDIASTINUM: No significant abnormality. LUNGS / PLEURA: No significant pulmonary or pleural abnormality. No pneumothorax. ADDITIONAL FINDINGS: No significant additional findings. IMPRESSION: 1. No acute findings or significant interval change when compared to 05/09/2019. Signer Name: Ian Oro MD Signed: 12/06/2020 4:10 PM Workstation Name: [id number]
[2020-12-06 16:18] LABS: Total Cells Counted 100
[2020-12-06 16:19] LABS: RBC Morphology Normal
--- NOTE | 2020-12-06 18:26 | Emergency Department Report ---
ED Dizziness HPI - General Chief Complaint: Dizziness Stated Complaint: DIZZINESS Time Seen by Provider: 12/06/20 18:16 Source: patient Mode of arrival: Ambulatory Limitations: No Limitations - History of Present Illness Initial Comments: Patient is a 20-year-old female that presents emergency room with complaints of bilateral flank pain, dizziness, headache. Patient states her symptoms started 2 days ago. Patient states she is 20 weeks . Patient states she was already seen at mother-baby and the baby checked out normal. Mother states that the patient had normal heart sounds and movement. Mother states that they did not find any contractions. Mother had a liter of fluid at mother-baby and the patient's blood pressure still low in triage. Patient states that her dizziness and headache is better with rest. Patient states her flank pain is better with rest and worse with movement. Patient states she is still feeling dizzy. Pat ient states that she is having some bladder pressure as well. Patient states she is having fevers as well. Patient complains of chills. Patient denies chest pain. Patient denies shortness of breath. Patient denies recent travel. Patient denies recent international travel. Patient denies exposure to the novel coronavirus. Patient denies sick contacts. Patient denies loss of smell.. Patient denies cough. Patient denies diarrhea. Patient denies coming in contact with anybody with symptoms of the novel coronavirus. Patient had care already. Patient states this is her first child. Patient states that her allergy to penicillin is hives. Complaint: dizziness, lightheadedness -: Sudden Timing: sudden onset Description: lightheadedness History of Same: No History of Trauma: No Severity: severe Improves With: rest Worsens With: movement Associated Symptoms: weakness. denies: ataxia, chest pain, confusion, cough, diaphoresis, fever/chills, loss of appetite, malaise, rash, seizure, shortness of breath, syncope - Related Data Previous Rx's Medication Instructions Recorded Last Taken Type Azithromycin [Zithromax] 250 mg PO DAILY #6 tablet 10/31/20 Unknown Rx Acetaminophen [Tylenol] 500 mg PO Q6HR PRN #30 tablet 11/26/20 Unknown Rx Allergies Allergy/AdvReac Type Severity Reaction Status Date / Time Penicillins Allergy Hives Verified 12/06/20 14:37 ED Review of Systems ROS: Stated complaint: DIZZINESS Other details as noted in HPI Constitutional: chills, fever Eyes: denies: eye pain, eye discharge, vision change ENT: denies: ear pain, throat pain Respiratory: denies: cough, shortness of breath, wheezing Cardiovascular: denies: chest pain, palpitations Endocrine: no symptoms reported Gastrointestinal: as per HPI. denies: nausea, diarrhea Genitourinary: as per HPI, dysuria. denies: urgency, discharge Musculoskeletal: denies: back pain, joint swelling, arthralgia Skin: denies: rash, lesions Neurological: as per HPI, headache, weakness. denies: paresthesias Psychiatric: denies: anxiety, depression Hematological/Lymphatic: denies: easy bleeding, easy bruising ED Past Medical Hx - Past Medical History Previous Medical History?: Yes Hx Hypertension: No Hx Diabetes: No Hx Deep Vein Thrombosis: No Hx Renal Disease: No Hx Sickle Cell Disease: Yes (trait) Hx Seizures: No Hx Asthma: No Hx HIV: No Additional medical history: ovarian cyst - Surgical History Past Surgical History?: No - Family History Family history: no significant - Social History Smoking Status: Never Smoker Substance Use Type: None - Medications Home Medications: Home Medications Medication Instructions Recorded Confirmed Last Taken Type Azithromycin [Zithromax] 250 mg PO DAILY #6 tablet 10/31/20 Unknown Rx Acetaminophen [Tylenol] 500 mg PO Q6HR PRN #30 tablet 11/26/20 Unknown Rx ED Physical Exam - General Limitations: No Limitations General appearance: alert, in no apparent distress - Head Head exam: Present: atraumatic, normocephalic - Eye Eye exam: Present: normal appearance - ENT ENT exam: Present: mucous membranes moist - Neck Neck exam: Present: normal inspection - Respiratory Respiratory exam: Present: normal lung sounds bilaterally. Absent: respiratory distress - Cardiovascular Cardiovascular Exam: Present: regular rate, normal rhythm. Absent: systolic murmur, diastolic murmur, rubs, gallop - GI/Abdominal GI/Abdominal exam: Present: soft, tenderness (Bilateral flank tenderness to palpation.), normal bowel sounds - Extremities Exam Extremities exam: Present: normal inspection - Back Exam Back exam: Present: normal inspection - Neurological Exam Neurological exam: Present: alert, oriented X3 - Psychiatric Psychiatric exam: Present: normal affect, normal mood - Skin Skin exam: Present: warm, dry, intact, normal color. Absent: rash ED Course Vital Signs 12/06/20 12/06/20 12/06/20 14:38 18:18 19:45 Temperature 101.9 F H Pulse Rate 133 H 97 H 97 H Respiratory 22 18 18 Rate Blood Pressure 98/42 Blood Pressure 112/56 [Left] O2 Sat by Pulse 100 100 99 Oximetry - Reevaluation(s) Reevaluation #1: Patient blood pressure improved. 12/06/20 18:45 Reevaluation #2: Patient blood pressure still stabilizing. Patient will be given Dilaudid for pain. 12/06/20 20:36 Reevaluation #3: I discussed all results with patient. I discussed plan of care with patient. Patient agrees with plan of care and admission. Patient to be admitted to the hospitalist service. 12/06/20 20:46 - Consultations Consultation #1: I discussed the case with the typing pool supervisor for Dr. Saint Valle. Patient has been accepted to be admitted to mother-baby. 12/06/20 20:44 I discussed the case with Dr. Saint Valle and Dr. Saint Valle states to admit the patient and she accepts the patient. 12/06/20 20:55 ED Medical Decision Making - Lab Data Result diagrams: 12/06/20 14:48 12/06/20 14:48 - Radiology Data Radiology results: report reviewed, image reviewed interpreted by me: Chest x-ray: No pneumonia, no pneumothorax, no foreign body, no osseous findings, no acute findings CHEST 1 VIEW 12/06/2020 3:43 PM INDICATION / CLINICAL INFORMATION: SOB, suspected sepsis. COMPARISON: 05/09/2019 FINDINGS: SUPPORT DEVICES: None. HEART / MEDIASTINUM: No significant abnormality. LUNGS / PLEURA: No significant pulmonary or pleural abnormality. No pneu mothorax. ADDITIONAL FINDINGS: No significant additional findings. IMPRESSION: 1. No acute findings or significant interval change when compared to 05/09/2019. ULTRASOUND RENAL INDICATION / CLINICAL INFORMATION: UTI, sepsis and flank pain. 21 weeks . COMPARISON: None available. FINDINGS: RIGHT KIDNEY: - Length = 11.3 cm. [Normal > 9.0 cm] - Parenchymal Thickness = 1.6 cm. [Normal > 1.5 cm] - Echogenicity: Normal -- hypoechoic or isoechoic to liver/spleen. - Hydronephrosis: Mild - Cyst or mass: No significant abnormality. LEFT KIDNEY: - Length = 11.0 cm. [Normal > 9.0 cm] - Parenchymal Thickness = 2.2 cm. [Normal > 1.5 cm] - Echogenicity: Normal -- hypoechoic or isoechoic to liver/spleen. - Hydronephrosis: None. - Cyst or mass: No significant abnormality. URINARY BLADDER: No significant abnormality. ADDITIONAL FINDINGS: I do not identify a urinary tract calculus. IMPRESSION: Mild right-sided hydronephrosis. Renal Parenchymal Thickness Parenchyma = Cortex + Medullary Pyramid - Normal >= 1.5 cm - Mild thinning = 1.0-1.49 cm - Moderate thinning = 0.5-0.99 cm - Severe thinning < 0.5 cm - Medical Decision Making Patient is a 20-year-old female that presents emergency room for dizziness and headache and flank pain. Patient's labs are essentially unremarkable. Patient was initially evaluated in mother-baby and the baby was previously healthy and the patient was sent down to the emergency room to be evaluated down here for possible sepsis. Patient was given a liter of fluids mother-baby and remained hypotensive. Patient brought to the acute care area and given more fluids and the patient's blood pressure responded well. Patient echocardiogram done while patient fever responded well. Patient had a ultrasound of her kidneys and they showed pyelonephritis. Patient given Rocephin even though the patient has a penicillin allergy. Patient penicillin allergy is only hives. Patient tolerated Rocephin without difficulty. Patient clinical findings are consistent with sepsis and urosepsis and pyelonephritis. Patient admitted to the mother- baby. Patient's on-call physician for her [employer] group has accepted the patient to be admitted. Critical care time documented due to the multiple reassessments, prolonged time at the bedside, interpretation of diagnostics and labs. - Differential Diagnosis Sepsis, UTI, pyelonephritis, dizziness, Critical Care Time: Yes Critical care time in (mins) excluding proc time.: 35 Critical care attestation.: If time is entered above; I have spent that time in minutes in the direct care of this critically ill patient, excluding procedure time. Critical Care Time: 35 minutes ED Disposition Clinical Impression: Pyelonephritis, Flank pain, Dizziness Sepsis Qualifiers: Sepsis type: sepsis due to unspecified organism Sepsis acute organ dysfunction status: without acute organ dysfunction Qualified Code(s): A41.9 - Sepsis, unspecified organism UTI (urinary tract infection) Qualifiers: Urinary tract infection type: acute pyelonephritis Qualified Code(s): N10 - Acute pyelonephritis Hypotension Qualifiers: Hypotension type: unspecified hypotension type Qualified Code(s): I95.9 - Hypotension, unspecified Qualifiers: Weeks of gestation: 21 weeks Qualified Code(s): Z3A.21 - 21 weeks gestation of Disposition: OP ADMIT IP TO THIS HOSP Is pt being admited?: Yes Does the pt Need Aspirin: No Condition: Critical Referrals: PRIMARY CARE, [Primary Care Provider] - 3-5 Days Time of Disposition: 20:37
[2020-12-06] MEDS ORDERED: cefTRIAXone/NS 1 GM/50 ML 1 GM/50 ML BAG IV ONE (19:07)
--- NOTE | 2020-12-06 19:42 | Ultrasound Report ---
ULTRASOUND RENAL INDICATION / CLINICAL INFORMATION: UTI, sepsis and flank pain. 21 weeks . COMPARISON: None available. FINDINGS: RIGHT KIDNEY: - Length = 11.3 cm. [Normal > 9.0 cm] - Parenchymal Thickness = 1.6 cm. [Normal > 1.5 cm] - Echogenicity: Normal -- hypoechoic or isoechoic to liver/spleen. - Hydronephrosis: Mild - Cyst or mass: No significant abnormality. LEFT KIDNEY: - Length = 11.0 cm. [Normal > 9.0 cm] - Parenchymal Thickness = 2.2 cm. [Normal > 1.5 cm] - Echogenicity: Normal -- hypoechoic or isoechoic to liver/spleen. - Hydronephrosis: None. - Cyst or mass: No significant abnormality. URINARY BLADDER: No significant abnormality. ADDITIONAL FINDINGS: I do not identify a urinary tract calculus. IMPRESSION: Mild right-sided hydronephrosis. Renal Parenchymal Thickness Parenchyma = Cortex + Medullary Pyramid - Normal >= 1.5 cm - Mild thinning = 1.0-1.49 cm - Moderate thinning = 0.5-0.99 cm - Severe thinning < 0.5 cm Signer Name: Ian Cisse MD Signed: 12/06/2020 7:38 PM Workstation Name: [id number]
[2020-12-06] MEDS ORDERED: ONDANSETRON 4 MG/2 ML INJ IV ONE (20:36)
[2020-12-06] MEDS ORDERED: HYDROmorphone 1 MG/1 ML INJ IV ONE ×2 (20:36→22:12)
[2020-12-07] MEDS: D5W/LACTATED RINGERS 1,000 ML IV SCH ×2 (02:27→10:26)
--- NOTE | 2020-12-07 07:44 | History and Physical Report ---
History of Present Illness Date of examination: 12/07/20 Date of admission: 12/06/20 20:48 Chief complaint: pain in abdomen History of present illness: 20y/o @ 20 weeks eusebia presents with the complaint of abdominal pain. She denies vaginal bleeding or leakage of fluid. UA demonstrated trace LE however patient was experiencing lower back pain. During her evaluation she had a temp spike. Past History Past Medical History: no pertinent history Past Surgical History: no surgical history Social history: single - Obstetrical History : 1 Para: 0 Hx # Term Pregnancies: 0 Number of Pregnancies: 0 Spontaneous Abortions: 0 Induced : 0 Number of Living Children: 0 Medications and Allergies Allergies Allergy/AdvReac Type Severity Reaction Status Date / Time Penicillins Allergy Hives Verified 12/06/20 14:37 Home Medications Medication Instructions Recorded Confirmed Last Taken Type Azithromycin [Zithromax] 250 mg PO DAILY #6 tablet 10/31/20 Unknown Rx Acetaminophen [Tylenol] 500 mg PO Q6HR PRN #30 tablet 11/26/20 Unknown Rx Nitrofurantoin [place]/M-Cryst 100 mg PO Q12HR #28 capsule 12/07/20 Unknown Rx [Macrobid CAP] Active Meds: Active Medications Acetaminophen (Acetaminophen 325 Mg Tab) 650 mg PO Q6H PRN PRN Reason: Pain, Mild (1-3) Dextrose/Lactated Ringer's (D5lr) 1,000 mls @ 125 mls/hr IV DIRECT JULIANNE Last Admin: 12/07/20 02:27 Dose: 125 mls/hr Documented by: Cefazolin Sodium 2 gm/ Sodium (Chloride) 100 mls @ 200 mls/hr IV Q8H JULIANNE; Protocol Last Admin: 12/07/20 02:26 Dose: 200 mls/hr Documented by: Review of Systems All systems: negative Gastrointestinal: abdominal pain - Vital Signs Vital signs: Vital Signs Temp Pulse Resp BP Pulse Ox 101.9 F H 133 H 22 98/42 100 12/06/20 14:38 12/06/20 14:38 12/06/20 14:38 12/06/20 14:38 12/06/20 14:38 Temp Pulse Resp BP Pulse Ox 99.1 F 103 H 18 104/55 98 12/07/20 04:21 12/07/20 04:21 12/07/20 04:21 12/07/20 04:21 12/07/20 04:21 - Physical Exam Breasts: Positive: deferred Cardiovascular: Regular rate Lungs: Positive: Clear to auscultation Abdomen: Positive: normal appearance Results Result Diagrams: 12/06/20 14:48 12/06/20 14:48 Abnormal lab results 12/06/20 12/06/20 12/06/20 Range/Units 14:48 14:48 15:08 RBC 3.43 L (3.65-5.03) M/mm3 Seg Neuts % (Manual) 91.0 H (40.0-70.0) % Lymphocytes % (Manual) 5.0 L (13.4-35.0) % Lymphocytes # (Manual) 0.4 L (1.2-5.4) K/mm3 Sodium 130 L (137-145) mmol/L Chloride 95.2 L (98-107) mmol/L Carbon Dioxide 21 L (22-30) mmol/L BUN 4 L (7-17) mg/dL Albumin 3.2 L (3.9-5) g/dL Urine WBC (Auto) 22.0 H (0.0-6.0) /HPF U Epithel Cells (Auto) 22.0 H (0-13.0) /HPF All other labs normal. Assessment and Plan - Patient Problems (1) Current Visit: Yes Status: Acute Qualifiers: Weeks of gestation: 21 weeks Qualified Code(s): Z3A.21 - 21 weeks gestation of Plan to address problem: patient demonstrating clinical improvement continue IV antibiotics consider discharge home tomorrow (2) Pyelonephritis Current Visit: Yes Status: Acute
[2020-12-07] MEDS: ACETAMINOPHEN 325 MG TAB PO PRN (08:30)
[2020-12-07 09:24] LABS: Blood Urea Nitrogen 4 mg/dL (7-17); Calcium 8.3 mg/dL (8.4-10.2); Hemolysis Index 0
[2020-12-07 09:25] LABS: BUN/Creatinine Ratio 8
[2020-12-08] MEDS: ACETAMINOPHEN 325 MG TAB PO PRN (07:36)
--- NOTE | 2020-12-08 09:54 | Progress Note ---
Assessment and Plan 20 week IUP with pain that may be secondary to pyelo or covid. Will recheck CBC on today to assess change in values. If ok, will discharge patient home on oral antibiotics. Subjective - Subjective Date of service: 12/08/20 Principal diagnosis: Pain and fever at 20 weeks Interval history: Pt is a 20 year old female at 20 weeks gestation who presents with suspected pyelonephritis secondary to flank pain and fever, however patient has tested positive for Covid. Patient has not had any fever in over 24 hours as of this morning but does still complain of flank pain and headache. Patient reports: appetite normal, voiding normally, dizzy ambulation, pain well controlled, ambulating normally Objective - Vital Signs Latest vital signs: Vital Signs Temp Pulse Pulse Resp BP BP Pulse Ox 12/08/20 08:48 98.2 F 96 H 20 109/59 99 12/08/20 05:00 98 F 87 18 99/52 99 12/08/20 01:00 97.5 F L 82 20 94/53 100 12/07/20 22:30 74 18 12/07/20 21:00 98.1 F 102 H 18 119/63 100 12/07/20 16:32 98.8 F 105 H 20 117/69 98 12/07/20 12:19 98.4 F 88 16 101/58 100 Intake and Output 12/07/20 12/08/20 12/08/20 22:59 06:59 14:59 Intake Total 100 240 Output Total 350 300 Balance -250 -60 Intake: IV 100 ceFAZolin 2 GM In NaCl 0. 100 9% 100 ml @ 200 mls/hr IV Q8H [facility] Rx#:[id number] Intake, Free Water 240 Output: Urine 350 300 Void 350 300 Other: Total, Output Amount 200 300 Voiding Method Toilet # Voids Void 1 - Exam Breasts: Present: deferred Cardiovascular: Present: Regular rate, Normal S1, Normal S2 Lungs: Present: Clear to auscultation, Normal air movement Abdomen: Present: normal appearance, soft Extremities: Present: normal - Labs Labs: Abnormal lab results 12/07/20 Range/Units Unknown Coronavirus (PCR) Positive A (Negative)
--- NOTE | 2020-12-08 09:55 | Discharge Summary ---
Providers - Providers Date of Admission: 12/06/20 20:48 Date of discharge: 12/08/20 Attending physician: FLEX OCHOA Primary care physician: JEREMY GONZALEZ MD Hospitalization Reason for admission: other (fever and dizziness) Discharge diagnosis: other Condition at discharge: Stable Disposition: DC-01 TO HOME OR SELFCARE - Discharge Diagnoses (1) Dizziness Status: Acute (2) Flank pain Status: Acute (3) Hypotension Status: Acute Qualifiers: Hypotension type: unspecified hypotension type Qualified Code(s): I95.9 - Hypotension, unspecified (4) Status: Acute Qualifiers: Weeks of gestation: 21 weeks Qualified Code(s): Z3A.21 - 21 weeks gestation of (5) Pyelonephritis Status: Acute Plan - Discharge Medications Prescriptions: Nitrofurantoin [place]/M-Cryst [Macrobid CAP] 100 mg PO Q12HR #28 capsule - Provider Discharge Summary Activity: routine Additional instructions: [] Smoking cessation referral if applicable(refer to patient education folder for contact #) [] Refer to [facility] Booklet Call your doctor immediately for: * Fever > 100.5 * Heavy vaginal bleeding ( >1 pad per hour) * Severe persistent headache * Shortness of breath * Reddened, hot, painful area to leg or breast * Drainage or odor from incision. * Keep incision clean and dry at all times and follow doctor's instructions regarding bathing/showering - Follow up plan Follow up: PRIMARY CARE, [Primary Care Provider] - 3-5 Days
[2020-12-08 13:37] LABS: Basophils % (Auto) 0.2 % (0.0-1.8); Eosinophils % (Auto) 0.4 % (0.0-4.3); Hematocrit 26.9 % (30.3-42.9); Hemoglobin 9.4 gm/dl (10.1-14.3); Lymphocytes # (Auto) 0.6 K/mm3 (1.2-5.4); Lymphocytes % (Auto) 14.4 % (13.4-35.0); Mean Corpuscular HGB Conc 35 % (30-34); Mean Corpuscular Volume 88 fl (79-97); Monocytes # (Auto) 0.5 K/mm3 (0.0-0.8); Monocytes % (Auto) 11.8 % (0.0-7.3); Platelet Count 186 K/mm3 (140-440); Red Blood Count 3.06 M/mm3 (3.65-5.03); Red Cell Distribution Width 13.6 % (13.2-15.2)
[2020-12-08 17:00] VITALS: BP 117/72
--- NOTE | 2020-12-13 11:08 | Electrocardiograph Report ---
[facility] Test Date: 2020-12-06 Test Time: 15:06:25 Pat Name: PREET BURNS Department: Room: 2102 1 Gender: F Bridge Crane Operator: COREEN : 2000 Requested By: FLEX OCHOA Order Number: [id number] Reading MD: Kenya Pickens Measurements Intervals [place] Rate: 123 P: 44 RI: 148 QRS: 47 QRSD: 77 T: -18 QT: 291 QTc: 417 Interpretive Statements Sinus tachycardia Borderline T abnormalities, diffuse leads No previous ECG available for comparison Electronically Signed On 12-13-2020 11:08:29 EDT by Kenya Pickens
== END 2020-12-08 17:00 | disposition home or self-care (01) ==
LOC: ED 13:43 → OB 20:48
PROVIDERS: ADMIT Obstetrics & Gynecology; ATTEND Obstetrics & Gynecology
DX: O98.512 Other viral diseases complicating pregnancy, second trimester (principal); U07.1 COVID-19; O23.02 Infections of kidney in pregnancy, second trimester; N12 Tubulo-interstitial nephritis, not specified as acute or chronic; O26.892 Other specified pregnancy related conditions, second trimester; A41.9 Sepsis, unspecified organism; R42 Dizziness and giddiness; I95.9 Hypotension, unspecified; D57.1 Sickle-cell disease without crisis; Z3A.21 21 weeks gestation of pregnancy
CPT/HCPCS: 36415; 71045; 76770; 80048; 80053; 81001; 82140; 82550; 83735; 84484; 85025; 87040; 87076; 87086; 87186; 96365; 96366; 96367; 96375; 96376; 99291; G0378; J0690; J0696; J1170; J2405; J7121; U0003; 85007; 93005

== ENCOUNTER 2021-04-13 04:43 | Inpatient (IN) | payer MEDICAID ==
[2021-04-13] MEDS ORDERED: fentaNYL 100 MCG/2 ML INJ IV PRN (05:56)
[2021-04-13] MEDS ORDERED: LIDOCAINE (2%) 20 MG/1 ML VIAL 20 ML MDV INFILTRATI ONE ×2 (05:56→10:08)
[2021-04-13] MEDS ORDERED: METHYLERGONOVINE MALEATE 0.2 MG/ML VIAL IM PRN (05:56)
[2021-04-13] MEDS ORDERED: MINERAL OIL 30 ML ORAL LIQD PO PRN (05:56)
[2021-04-13] MEDS ORDERED: TERBUTALINE 1 MG/1 ML INJ SUB-Q PRN (05:56)
[2021-04-13] MEDS ORDERED: OXYTOCIN 10 UNIT/1 ML INJ IM PRN (05:56)
[2021-04-13] MEDS ORDERED: ACETAMINOPHEN 325 MG TAB PO PRN (05:56)
[2021-04-13] MEDS ORDERED: NALOXONE 0.4 MG/1 ML INJ IV PRN (05:56)
[2021-04-13] MEDS ORDERED: ePHEDrine SULFATE 50 MG/1 ML INJ IV PRN ×2 (05:56→13:00)
[2021-04-13] MEDS ORDERED: LOPERAMIDE 2 MG CAP PO PRN (05:56)
[2021-04-13] MEDS ORDERED: BUTORPHANOL 2 MG/1 ML INJ IV PRN (05:56)
[2021-04-13] MEDS ORDERED: CARBOPROST TROMETHAMINE 250 MCG/1 ML INJ IM PRN (05:56)
[2021-04-13] MEDS ORDERED: miSOPROStol 200 MCG TAB PR PRN (05:56)
[2021-04-13] MEDS ORDERED: LACTATED RINGERS 1,000 ML IV SCH (06:00)
[2021-04-13] MEDS ORDERED: OXYTOCIN DRIP 30 UNITS/500 ML BAG IV SCH ×2 (06:00)
[2021-04-13] MEDS: ONDANSETRON 4 MG/2 ML INJ IV PRN ×2 (06:28→13:35)
[2021-04-13 06:51] LABS: Hematocrit 31.9 % (30.3-42.9); Hemoglobin 10.6 gm/dl (10.1-14.3); Mean Corpuscular HGB Conc 33 % (30-34); Mean Corpuscular Volume 88 fl (79-97); Red Blood Count 3.63 M/mm3 (3.65-5.03); Red Cell Distribution Width 17.7 % (13.2-15.2)
[2021-04-13] MEDS ORDERED: VANCOMYCIN/NS 1 GM/250 ML 1 GM/250 ML BAG IV SCH (07:00)
[2021-04-13 07:15] LABS: Platelet Count 206 K/mm3 (140-440)
--- NOTE | 2021-04-13 10:40 | History and Physical Report ---
History of Present Illness Date of examination: 04/13/21 Date of admission: 04/13/21 05:57 Chief complaint: my water broke History of present illness: Pt is a 20 year old -[place] female primigravida JADEN 04/16/21 at 39w4d who presents with rupture of membranes at 0304 am 04/12/21 and irregular contractions. She was found to be grossly ruptured on exam. She denies vaginal bleeding. 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 She is GBS positive. Past History Past Medical History: no pertinent history Past Surgical History: no surgical history Family/Genetic History: none Social history: no significant social history - Obstetrical History Expected Date of Delivery: 04/16/21 Actual Gestation: 39 Week(s) 4 Day(s) : 1 Medications and Allergies Allergies Allergy/AdvReac Type Severity Reaction Status Date / Time Penicillins Allergy Hives Verified 12/06/20 14:37 shellfish derived Allergy Anaphylaxis Verified 04/13/21 06:21 Home Medications Medication Instructions Recorded Confirmed Last Taken Type Azithromycin [Zithromax] 250 mg PO DAILY #6 tablet 10/31/20 04/13/21 Unknown Rx Acetaminophen [Tylenol] 500 mg PO Q6HR PRN #30 tablet 11/26/20 04/13/21 Unknown Rx Nitrofurantoin [place]/M-Cryst 100 mg PO Q12HR #28 capsule 12/07/20 04/13/21 Unknown Rx [Macrobid CAP] Active Meds: Active Medications Acetaminophen (Acetaminophen 325 Mg Tab) 650 mg PO Q4H PRN PRN Reason: Pain, Mild (1-3) Butorphanol Tartrate (Butorphanol 2 Mg/1 Ml Inj) 1 mg IV Q2H PRN PRN Reason: Pain, Moderate(4-6) LABOR PAIN Carboprost Tromethamine (Carboprost Tromethamine 250 Mcg/1 Ml Inj) 250 mcg IM ONCE PRN PRN Reason: Uterine Bleeding Ephedrine Sulfate (Ephedrine Sulfate 50 Mg/1 Ml Inj) 10 mg IV Q2M PRN PRN Reason: Hypotension Fentanyl (Fentanyl 100 Mcg/2 Ml Inj) 100 mcg IV Q2H PRN PRN Reason: Pain,Severe (7-10) LABOR PAIN Last Admin: 04/13/21 07:40 Dose: 100 mcg Documented by: Oxytocin/Sodium Chloride (Pitocin/Ns 30 Unit/500ml) 30 units in 500 mls @ 2 mls/hr IV TITR JULIANNE; Protocol Lactated Ringer's (Lactated Ringers) 1,000 mls @ 125 mls/hr IV DIRECT JULIANNE Last Admin: 04/13/21 07:00 Dose: 125 mls/hr Documented by: Oxytocin/Sodium Chloride (Pitocin/Ns 30 Unit/500ml) 30 units in 500 mls @ 40 mls/hr IV TITR JULIANNE; Protocol Vancomycin HCl (Vancomycin/Ns 1 Gm/250 Ml) 1 gm in 250 mls @ 166.667 mls/hr IV Q12H JULIANNE; Protocol Last Admin: 04/13/21 07:52 Dose: 166.667 mls/hr Documented by: Loperamide HCl (Loperamide 2 Mg Cap) 2 mg PO ONCE PRN PRN Reason: give with Hemabate Methylergonovine Maleate (Methylergonovine Maleate 0.2 Mg/Ml Vial) 0.2 mg IM ONCE PRN PRN Reason: Uterine Bleeding Mineral Oil (Mineral Oil 30 Ml Oral Liqd) 30 ml PO QHS PRN PRN Reason: Constipation Misoprostol (Misoprostol 200 Mcg Tab) 800 mcg [place] ONCE PRN PRN Reason: Uterine Bleeding Naloxone HCl (Naloxone 0.4 Mg/1 Ml Inj) 0.1 mg IV Q2MIN PRN PRN Reason: Res Rate </= 8 or 02 SAT < 92% Ondansetron HCl (Ondansetron 4 Mg/2 Ml Inj) 4 mg IV Q8H PRN PRN Reason: Nausea And Vomiting Last Admin: 04/13/21 06:28 Dose: 4 mg Documented by: Oxytocin (Oxytocin 10 Unit/1 Ml Inj) 10 unit IM ONCE PRN PRN Reason: Uterine Bleeding Terbutaline Sulfate (Terbutaline 1 Mg/1 Ml Inj) 0.25 mg SUB-Q ONCE PRN PRN Reason: Hyperstimulation/Hypertonicity Review of Systems All systems: negative - Vital Signs Vital signs: Vital Signs Pulse BP 93 H 137/89 04/13/21 05:13 04/13/21 05:13 Temp Pulse Resp BP Pulse Ox 98.1 F 86 20 135/88 100 10/16/21 08:00 04/13/21 10:35 04/13/21 08:00 04/13/21 10:17 04/13/21 10:35 - Physical Exam Breasts: Positive: deferred Abdomen: Positive: soft (obese, gravid ) Uterus: Positive: enlarged (gravid ) Extremities: Positive: edema (trace) - Obstetrical FHR: auscultation normal Cervical Dilatation: 9 (per RN) Cervical Effacement Percentage: 100 station: +1 Uterine Contraction Pattern: Regular Uterine Tone Measurement Phase: Resting Uterine Contraction Intensity: Moderate Results Result Diagrams: 04/13/21 06:34 Abnormal lab results 04/13/21 Range/Units 06:34 RBC 3.63 L (3.65-5.03) M/mm3 RDW 17.7 H (13.2-15.2) % All other labs normal. Assessment and Plan A: IUP at 39w4d SROM Transitional Labor Obesity Insufficient Care Silent Alpha Thalassemia carrier status- father of the baby negative GBS Positive- PCN allergy, no sensitivities P: Admit to labor and delivery Routine intrapartum care Vancomycin 1 g Q 12H Continue to monitor and status
--- NOTE | 2021-04-13 12:03 | Event Note ---
Date: 04/13/21 Pt remains unchanged. SVE: /+1. Pt tolerating contractions poorly. Pt now agrees to epidural. Restart pitocin once epidural in place. Closely monitor maternal and status.
--- NOTE | 2021-04-13 12:19 | Anesthesia Consultation ---
Anesthesia Consult and Med Hx Date of service: 04/13/21 - Airway Anesthetic Teeth Evaluation: Good ROM Head & Neck: Adequate Mental/Hyoid Distance: Adequate Mallampati Class: Class II Intubation Access Assessment: Probably Good - Pulmonary Exam CTA: Yes - Cardiac Exam Cardiac Exam: RRR - Pre-Operative Health Status ASA Pre-Surgery Classification: ASA2 Proposed Anesthetic Plan: Epidural - Pulmonary Hx Asthma: No COPD: No Hx Pneumonia: No - Cardiovascular System Hx Hypertension: No - Central Nervous System Hx Seizures: No Hx Psychiatric Problems: No - Endocrine Hx Renal Disease: No Hx End Stage Renal Disease: No Hx Hypothyroidism: No Hx Hyperthyroidism: No - Hematic Hx Anemia: Yes (iron supplement) Hx Sickle Cell Disease: No - Other Systems Hx Alcohol Use: No
--- NOTE | 2021-04-13 12:41 | Progress Note ---
Labor Epidural - Labor Epidural Start Time: 12:31 Stop Time: 12:36 Performed by:: LALO IBARRA Procedure: Patient is requesting epidural for labor pain. H&P, and labs reviewed. Procedure explained, questions answered, consent obtained. Patient in sitting position with blood pressure cuff and pulse ox on and working. Timeout performed immediately before start of procedure. Sterile chlorahexadine 0.5% prep/drape. 3 mL 1% lidocaine skin wheal at L[3]-L[4]. 18-gauge EyeNetratead epidural needle advanced to [id number] with saline at [7] cm. Epidural catheter advanced to [12] cm, negative aspiration for blood and csf, negative test dose 3 ml 1.5% lidocaine with epinephrine. Epidural dexmedetomidine [30] mcg administered. Sterile sponge and tegaderm applied, followed by tape reinforcement. Patient tolerated procedure well. [] SRNA
[2021-04-13] MEDS ORDERED: fentaNYL-BUPIV 2 MCG/ML-0.125% 200 MCG/100 ML BAG EPIDURAL SCH (13:00)
[2021-04-13] MEDS ORDERED: NALOXONE 2 MG/2 ML INJ IV PRN (13:00)
--- NOTE | 2021-04-13 14:37 | Procedure Note ---
OB Delivery Note - Delivery Date of Delivery: 04/13/21 Surgeon: KAYLEEN WIGGINS Estimated blood loss: other (600 mL) - Vaginal Delivery presentation: compound Delivery position: OA Intrapartum events: PROM->1hr before delivery, uterine atony Delivery induction: none Delivery augmentation: pitocin Delivery monitor: external FHT, external uterine Route of delivery: Delivery placenta: spontaneous Episiotomy: none Delivery laceration: 1st degree (Bilateral periurethrals (two left, one right), right labial ) Delivery repair: chromic (repaired with 2-0 Chromic ) Anesthesia: local, epidural - Infant A at 1 minute: 8 at 5 minutes: 9 Infant Gender: Female (3582g (7lb 14oz) @ 1329 pm)
[2021-04-13] MEDS ORDERED: MAGNESIUM HYDROXIDE (MOM) ORAL LIQD UDC PO PRN (16:49)
[2021-04-13] MEDS ORDERED: WITCH HAZEL/ GLYCERIN PAD TP PRN (16:49)
[2021-04-13] MEDS ORDERED: ONDANSETRON 4 MG/2 ML INJ IV PRN (16:49)
[2021-04-13] MEDS ORDERED: diphenhydrAMINE 25 MG CAP PO PRN (16:49)
[2021-04-13] MEDS ORDERED: BENZOCAINE/MENTHOL 20/0.5% TOP SPRAY 56 GM TP PRN (16:49)
[2021-04-13] MEDS ORDERED: PROMETHAZINE 25 MG RECT SUPP PR PRN (16:49)
[2021-04-13] MEDS ORDERED: LANOLIN/ZINC/DIMETHICONE (LANSINOH) 7 GM TP PRN ×2 (16:49)
[2021-04-13] MEDS ORDERED: PROMETHAZINE 25 MG TAB PO PRN (16:49)
[2021-04-13] MEDS: IBUPROFEN 600 MG TAB PO SCH (17:51)
[2021-04-13] MEDS: FERROUS SULFATE 325 MG TAB PO SCH (22:15)
[2021-04-14] MEDS: IBUPROFEN 600 MG TAB PO SCH ×3 (00:10→12:15)
[2021-04-14 03:11] LABS: Hematocrit 28.6 % (30.3-42.9); Hemoglobin 9.7 gm/dl (10.1-14.3)
[2021-04-14] MEDS ORDERED: TETANUS,DIPH,PERTUSS(ACELL) VACCINE 0.5 ML SYRINGE IM ONE (06:00)
[2021-04-14] MEDS: FERROUS SULFATE 325 MG TAB PO SCH (10:20)
--- NOTE | 2021-04-14 12:12 | Progress Note ---
Assessment and Plan A: PPD#1 s/p at term Asymptomatic anemia Obesity P: Routine care Anticipate discharge today Subjective - Subjective Date of service: 04/14/21 Principal diagnosis: PPD#1 s/p at term; Asymptomatic anemia Interval history: No overnight events Patient reports: appetite normal, voiding normally, pain well controlled, ambulating normally : doing well Objective - Vital Signs Latest vital signs: Vital Signs Temp Pulse Resp BP BP Pulse Ox Pulse Ox 04/14/21 08:00 98 04/14/21 07:33 98.0 F 69 20 124/79 100 04/14/21 04:02 98.0 F 83 16 124/75 96 04/14/21 00:05 98.0 F 77 18 123/77 98 04/13/21 19:41 98.6 F 65 18 136/94 98 04/13/21 19:35 98 04/13/21 16:20 97.7 F 53 L 18 134/74 100 99 04/13/21 15:48 55 L 99 04/13/21 15:45 64 121/70 04/13/21 15:43 59 L 99 04/13/21 15:38 58 L 100 04/13/21 15:33 60 100 04/13/21 15:30 62 126/70 04/13/21 15:28 58 L 100 04/13/21 15:23 56 L 100 04/13/21 15:18 52 L 100 04/13/21 15:14 49 L 145/69 04/13/21 15:13 60 100 04/13/21 15:08 59 L 100 04/13/21 15:03 55 L 100 04/13/21 14:59 53 L 131/72 04/13/21 14:58 54 L 100 04/13/21 14:53 53 L 100 04/13/21 14:48 55 L 100 04/13/21 14:43 57 L 100 04/13/21 14:38 51 L 131/65 100 04/13/21 14:33 59 L 100 04/13/21 14:32 55 L 138/77 04/13/21 14:28 61 141/73 100 04/13/21 14:26 60 140/75 04/13/21 14:23 60 99 04/13/21 14:18 64 100 04/13/21 14:16 63 128/73 04/13/21 14:13 64 131/70 100 04/13/21 14:10 62 132/67 04/13/21 14:08 63 100 04/13/21 14:07 65 131/64 04/13/21 14:04 62 132/65 04/13/21 14:03 66 100 04/13/21 14:01 71 130/66 04/13/21 13:58 68 128/62 100 04/13/21 13:55 69 132/71 04/13/21 13:53 67 100 04/13/21 13:52 75 129/61 04/13/21 13:49 71 125/58 04/13/21 13:48 73 100 04/13/21 13:46 78 125/63 04/13/21 13:43 79 123/65 100 04/13/21 13:41 78 118/66 04/13/21 13:38 76 100 04/13/21 13:37 88 100/63 04/13/21 13:34 77 116/58 04/13/21 13:33 85 100 04/13/21 13:32 85 129/59 04/13/21 13:28 81 100 04/13/21 13:26 96 H 112/87 04/13/21 13:23 94 H 100 04/13/21 13:22 86 137/74 04/13/21 13:20 84 146/78 04/13/21 13:18 81 99 04/13/21 13:16 83 118/70 04/13/21 13:13 77 128/77 99 04/13/21 13:10 68 124/74 04/13/21 13:08 71 100 04/13/21 13:04 75 129/72 04/13/21 13:03 110 H 99 04/13/21 13:01 75 130/71 04/13/21 12:58 71 128/72 100 04/13/21 12:55 78 138/78 04/13/21 12:53 71 100 04/13/21 12:52 76 126/69 04/13/21 12:49 85 132/85 04/13/21 12:48 78 100 04/13/21 12:46 76 133/77 04/13/21 12:45 77 147/83 04/13/21 12:44 78 157/101 04/13/21 12:43 82 98 04/13/21 12:40 98.1 F 20 04/13/21 12:38 76 100 04/13/21 12:37 72 140/89 04/13/21 12:36 70 134/88 04/13/21 12:33 65 99 04/13/21 12:28 77 100 04/13/21 12:23 66 98 04/13/21 12:18 73 99 Pulse Ox 04/14/21 08:00 98 04/14/21 07:33 04/14/21 04:02 04/14/21 00:05 04/13/21 19:41 04/13/21 19:35 98 04/13/21 16:20 100 04/13/21 15:48 04/13/21 15:45 04/13/21 15:43 04/13/21 15:38 04/13/21 15:33 04/13/21 15:30 04/13/21 15:28 04/13/21 15:23 04/13/21 15:18 04/13/21 15:14 04/13/21 15:13 04/13/21 15:08 04/13/21 15:03 04/13/21 14:59 04/13/21 14:58 04/13/21 14:53 04/13/21 14:48 04/13/21 14:43 04/13/21 14:38 04/13/21 14:33 04/13/21 14:32 04/13/21 14:28 04/13/21 14:26 04/13/21 14:23 04/13/21 14:18 04/13/21 14:16 04/13/21 14:13 04/13/21 14:10 04/13/21 14:08 04/13/21 14:07 04/13/21 14:04 04/13/21 14:03 04/13/21 14:01 04/13/21 13:58 04/13/21 13:55 04/13/21 13:53 04/13/21 13:52 04/13/21 13:49 04/13/21 13:48 04/13/21 13:46 04/13/21 13:43 04/13/21 13:41 04/13/21 13:38 04/13/21 13:37 04/13/21 13:34 04/13/21 13:33 04/13/21 13:32 04/13/21 13:28 04/13/21 13:26 04/13/21 13:23 04/13/21 13:22 04/13/21 13:20 04/13/21 13:18 04/13/21 13:16 04/13/21 13:13 04/13/21 13:10 04/13/21 13:08 04/13/21 13:04 04/13/21 13:03 04/13/21 13:01 04/13/21 12:58 04/13/21 12:55 04/13/21 12:53 04/13/21 12:52 04/13/21 12:49 04/13/21 12:48 04/13/21 12:46 04/13/21 12:45 04/13/21 12:44 04/13/21 12:43 04/13/21 12:40 04/13/21 12:38 04/13/21 12:37 04/13/21 12:36 04/13/21 12:33 04/13/21 12:28 04/13/21 12:23 04/13/21 12:18 Intake and Output 04/13/21 04/14/21 04/14/21 22:59 06:59 14:59 Intake Total 120 240 Output Total 700 400 Balance -580 -400 240 Intake: Oral 120 240 Output: Urine 700 400 Void 700 400 Other: Total, Intake Amount 120 240 Total, Output Amount 700 400 # Voids Void 1 1 Estimated Blood Loss 600 - Exam Breasts: Present: deferred Abdomen: Present: soft Uterus: Present: fundal height at umbilicus Extremities: Present: edema (trace ) - Labs Labs: Abnormal lab results 04/14/21 Range/Units 02:49 Hgb 9.7 L (10.1-14.3) gm/dl Hct 28.6 L (30.3-42.9) %
--- NOTE | 2021-04-14 12:13 | Discharge Summary ---
Providers - Providers Date of Admission: 04/13/21 05:57 Date of discharge: 04/14/21 Attending physician: KAYLEEN WIGGINS 04/13/21 16:49 Consult to Carpet Sewing Machine Operator [CONS] Routine Reason For Exam: assistance with , SNS Primary care physician: KAYLEEN WIGGINS Hospitalization Reason for admission: rupture of membranes Delivery: Procedure details: Please see delivery note Episiotomy: none Laceration: 1st degree (Bilateral periurethrals (two left, one right), right labial) Other procedures: none complications: none Discharge diagnosis: IUP at term delivered baby: female Hospital course: Patient was admitted with rupture of membranes at term and went on to have a spontaneous vaginal delivery which she tolerated well. Her course was uncomplicated and she met discharge criteria on day #1. She will follow-up in 2 weeks with Penny Milligan nurse practitioner for laceration check. Condition at discharge: Stable Disposition: 01 HOME / SELF CARE / HOMELESS - Discharge Diagnoses (1) Term of female Status: Acute (2) Obesity Status: Acute Qualifiers: Obesity type: unspecified obesity type Obesity classification: adult class 2 (BMI 35 - 39.9) Serious obesity comorbidity presence: unspecified whether serious comorbidity present Body mass index: BMI 35.0-35.9 Qualified Code(s): E66.9 - Obesity, unspecified; Z68.35 - Body mass index [BMI] 35.0-35.9, adult (3) Anemia Status: Acute Qualifiers: Anemia type: unspecified type Qualified Code(s): D64.9 - Anemia, unspecified (4) Spontaneous vaginal delivery Status: Acute Plan - Discharge Medications Prescriptions: Ferrous Sulfate [Feosol 325 MG tab] 325 mg PO BID #60 tablet Ibuprofen [Motrin] 800 mg PO Q8HR PRN #30 tablet PRN Reason: Pain, Moderate (4-6) - Provider Discharge Summary Activity: routine, no sex for 6 weeks, no heavy lifting 4 weeks, no strenuous exercise Diet: routine Instructions: routine Additional instructions: [] Smoking cessation referral if applicable(refer to patient education folder for contact #) [] Refer to [facility] Booklet Call your doctor immediately for: * Fever > 100.5 * Heavy vaginal bleeding ( >1 pad per hour) * Severe persistent headache * Shortness of breath * Reddened, hot, painful area to leg or breast * Drainage or odor from incision. * Keep incision clean and dry at all times and follow doctor's instructions regarding bathing/showering - Follow up plan Follow up: RON MILLIG[facility] SECURITY OPERATIONS ENGINEER [Advanced Practice Nurse] - 14 Days (Please call to schedule an appt for laceration check )
[2021-04-14] MEDS ORDERED: MEASLES, MUMPS & RUBELLA 12,500 UNIT/0.5 ML VACCINE SUB-Q ONE (15:38)
[2021-04-14 16:46] VITALS: BP 136/85
== END 2021-04-14 17:20 | disposition home or self-care (01) | DRG 775 ==
LOC: TRG 04:43 → APU 04:44 → TRG 05:57 → LD 05:57 → OB 16:25
PROVIDERS: ADMIT Obstetrics & Gynecology; ATTEND Obstetrics & Gynecology
PROC: 10E0XZZ Delivery of Products of Conception, External Approach (ICD-10-PCS; principal; 2021-04-13)
PROC: 3E0R3BZ Introduction of Anesthetic Agent into Spinal Canal, Percutaneous Approach (ICD-10-PCS; 2021-04-13)
PROC: 00HU33Z Insertion of Infusion Device into Spinal Canal, Percutaneous Approach (ICD-10-PCS; 2021-04-13)
PROC: 0HQ9XZZ Repair Perineum Skin, External Approach (ICD-10-PCS; 2021-04-13)
PROC: 3E0234Z Introduction of Serum, Toxoid and Vaccine into Muscle, Percutaneous Approach (ICD-10-PCS; 2021-04-14)
DX: O42.02 Full-term premature rupture of membranes, onset of labor within 24 hours of rupture (principal); O99.02 Anemia complicating childbirth; Z3A.39 39 weeks gestation of pregnancy; Z37.0 Single live birth; Z20.822 Contact with and (suspected) exposure to COVID-19; D56.3 Thalassemia minor; Z88.0 Allergy status to penicillin; Z91.013 Allergy to seafood; Z23 Encounter for immunization; O99.824 Streptococcus B carrier state complicating childbirth; O99.214 Obesity complicating childbirth; O62.2 Other uterine inertia; O70.0 First degree perineal laceration during delivery
CPT/HCPCS: 36415; 85014; 85018; 85027; 86592; 86850; 86900; 86901; G0378; J2210; J2405; J3010; J3370; J7120; U0003